=== PATIENT | female | born 1955 ===

== ENCOUNTER 2018-11-18 20:33 | Emergency (ER) | payer SELFPAY ==
[2018-11-18] MEDS ORDERED: Ciprofloxacin 0.3% OPTH.SOL* 2.5 ML BTL LEFT EYE ONE (20:53)
[2018-11-18] MEDS ORDERED: Amoxicillin/Clavulanate TAB* 875 MG PO ONE (20:54)
--- NOTE | 2018-11-18 20:56 | ED ---
Throat Pain/Nasal Congestion - HPI Summary HPI Summary: 63-year-old female presents with left eye irritation for the past day. She denies any foreign body in the area. Denies any change in vision. No blurry vision or double vision. She states the patient feels like a has. She's been having eye discharge. She states that she has pain around the eye. Redness noted around the eye. Denies any sinus congestion. No fevers. does wear glasses but no contacts. States she is visiting from out of town and returning to her home in 2 days. has history of thyroid disorder. - History of Current Complaint Chief Complaint: UCEye Time Seen by Provider: 11/18/18 20:45 - Allergies/Home Medications Allergies/Adverse Reactions: Allergies Allergy/AdvReac Type Severity Reaction Status Date / Time Sulfa (Sulfonamide Allergy Intermediate Rash Verified 11/18/18 20:45 Antibiotics) Home Medications: Home Medications Levothyroxine TAB* [Synthroid 88 MCG TAB*] 88 mcg PO DAILY 11/18/18 [History Confirmed 11/18/18] PMH/Surg Hx/FS Hx/Imm Hx Endocrine/Hematology History: Reports: Hx Thyroid Disease - hypo Denies: Hx Anticoagulant Therapy Cardiovascular History: Denies: Hx Auto Implanted Cardiovert Defib Infectious Disease History: No Infectious Disease History: Denies: Traveled Outside the [place] in Last 30 Days - Family History Known Family History: Positive: Non-Contributory - Social History Alcohol Use: None Substance Use Type: Reports: None Smoking Status (MU): Never Smoked Tobacco Review of Systems Negative: Fever Positive: Drainage, Erythema. Negative: Photophobia, Blurred Vision, Diplopia Negative: Chest Pain Negative: Shortness Of Breath All Other Systems Reviewed And Are Negative: Yes Physical Exam Triage Information Reviewed: Yes Vital Signs On Initial Exam: Initial Vitals Temp Pulse Resp BP Pulse Ox 98.2 F 71 16 144/67 97 11/18/18 20:38 11/18/18 20:38 11/18/18 20:38 11/18/18 20:38 11/18/18 20:38 Vital Signs Reviewed: Yes Appearance: Positive: Well-Appearing Skin: Positive: Warm, Dry Eyes: Positive: EOMI, NIKKIE, Conjunctiva Inflammed, Discharge - yellow, Other: - erythema around left eye but no edema ENT: Positive: Pharynx normal, TMs normal Respiratory/Lung Sounds: Positive: Clear to Auscultation, Breath Sounds Present Cardiovascular: Positive: Normal, RRR Musculoskeletal: Positive: Normal Neurological: Positive: Normal Psychiatric: Positive: Normal Diagnostics - Vital Signs Vital Signs Temp Pulse Resp BP Pulse Ox 11/18/18 20:38 98.2 F 71 16 144/67 97 - Laboratory Lab Statement: Any lab studies that have been ordered have been reviewed, and results considered in the medical decision making process. EENT Course/Dx - Course Course Of Treatment: 63-year-old female presents with left eye irritation for the past day. She denies any foreign body in the area. Denies any change in vision. No blurry vision or double vision. She states the patient feels like a has. She's been having eye discharge. She states that she has pain around the eye. Redness noted around the eye. Denies any sinus congestion. No fevers. does wear glasses but no contacts. States she is visiting from out of town and returning to her home in 2 days. has history of thyroid disorder. On exam tenderness and pus like discharge present left eye. Also has erythema around the left eye but no edema. Will treat with conjunctivitis with Cipro. With the fact the patient is leaving town and have some erythema around eye will treat as potential early periorbital cellulitis with Augmentin. Told needs to follow-up with primary as soon as gets home about infection and blood pressure as is elevated at this visit. Also told if develop any change in vision or worsening swelling. go to the ER. Patient understands and agrees with plan. - Differential Diagnoses Differential Diagnoses: Conjunctivitis, Corneal Abrasion, Periorbital/Orbital Cellulitis - Diagnoses Provider Diagnoses: Conjunctivitis Discharge - Sign-Out/Discharge Documenting (check all that apply): Patient Departure All imaging exams completed and their final reports reviewed: No Studies - Discharge Plan Condition: Good Disposition: HOME Prescriptions: Amoxicillin/Clavulanate TAB* [Augmentin TAB 875*] 875 mg PO BID #13 tab Patient Education Materials: Conjunctivitis (ED) Referrals: No Primary Care Phys,NOPCP [Primary Care Provider] - Additional Instructions: Place 1 drop in eye four times a day for 7 days take augmentin twice a day for 7 days Wash hands after touching eye Follow up with ophthalmology if no improvement follow up with primary Return to ED if develop any change in vision or any new or worsening symptoms - Billing Disposition and Condition Condition: GOOD Disposition: Home - Attestation Statements Provider Attestation: I did not examine this patient. I was available for consult.
== END 2018-11-18 21:10 | disposition home or self-care (01) ==
LOC: UCEAST 20:33
DX: H10.32 Unspecified acute conjunctivitis, left eye (principal); E03.9 Hypothyroidism, unspecified; Z88.2 Allergy status to sulfonamides
CPT/HCPCS: 99202; A9270-GY; G0463